=== PATIENT | female | born 1975 | race African-American/Black ===

== ENCOUNTER 2016-09-05 05:47 | Emergency (ER) | payer OTHER | END 2016-09-05 08:21 | disposition home or self-care (01) | LOC: CED 05:47 | DX: G43.909 Migraine, unspecified, not intractable, without status migrainosus (principal); J45.909 Unspecified asthma, uncomplicated; F17.200 Nicotine dependence, unspecified, uncomplicated; Z90.710 Acquired absence of both cervix and uterus; Z88.8 Allergy status to other drugs, medicaments and biological substances; Z91.041 Radiographic dye allergy status | CPT/HCPCS: 96372; 99283; J1885 ==